=== PATIENT | male | born 1995 | race Caucasian/White ===

== ENCOUNTER 2016-12-09 13:11 | Emergency (ER) | payer OTHER ==
[~2016-12-09] VITALS: Ht 185.4 cm; Wt 75.0 kg
[2016-12-09 13:23] VITALS: TEMP 36.6; Ht 185.4 cm; Wt 75.0 kg
[2016-12-09 14:02] LABS: BUN/CREATININE RATIO 13.2 (10-20); CALCIUM 9.2 mg/dl (8.5-10.1); CREATININE 1.1 mg/dl (0.60-1.40); POTASSIUM 3.8 mmol/L (3.5-5.1)
[2016-12-09 15:17] VITALS: O2SAT 99
[2016-12-09 16:10] VITALS: BP 119/48; PULSE 90
--- NOTE | 2016-12-09 20:56 | EMERGENCY ROOM VISIT NOTE ---
ED Visit Note First contact with patient: 13:18 Chief Complaint: Alcohol overdose. History of Present Illness: Mr. Cisneros is a 21-year-old white male who presents into the ED via ambulance for alcohol intoxication. He was found leaning over a fence by police. When questions he reports he was drinking vodka. EMS was summons and he was brought into the ED for evaluation. EMS reports patient was stable and had no acute changes en route. Initially he was responsive to verbal stimuli, he was breathing and did not appear to be in any acute distress, with stable vital signs. He once again reports he was drinking vodka. He does not remember the specific amounts. He denies any illicit drug use. He reports he did not have any falls. Currently he is reporting that he is no longer nauseated and is not experiencing any pain. He denies headache, dizziness, lightheadedness, visual changes, hearing changes, difficulty speaking, difficulty swallowing, neck pain , back pain, chest pain/discomfort, difficulty breathing, shortness of breath, abdominal pain, and extremity pain. After approximately hours the patient reports Review of Systems: As noted above in History of Present Illness. All body systems were reviewed with this patient and found to be negative unless noted above otherwise. Past Medical History: Patient denies. Social History: Patient is University student; he feels safe in his home environment; he denies tobacco use and admits to alcohol use. Current Medications: Patient denies. Allergies to Medications: Patient denies. Physical Examination: Vital Signs: Date Time Temp Pulse Resp B/P (MAP) Pulse Ox O2 Delivery O2 Flow Rate FiO2 12/09/16 16:10 90 18 119/48 12/09/16 15:17 70 16 117/50 99 Room Air 12/09/16 13:39 52 12/09/16 13:23 36.6 72 20 110/62 100 Room Air General: 21 year old white male in no acute distress, afebrile and hemodynamically stable. Skin: Warm dry and pink without signs of trauma. Head: Atraumatic and normocephalic. Eyes: Pupils are round equal and reactive to light. Conjunctiva is not injected. Sclera without icterus. Pharynx: Clear and moist without erythema or exudate. Ears: Externally nontender. Canals patent pink. Tympanic membranes pearly dolan with a foreign facing cone of light. Neck: Supple without lymphadenopathy or meningeal signs. Thorax: Lungs sounds are clear to auscultation and equal bilaterally with symmetrical chest wall movements. Heart: Regular rate and rhythm. No murmurs, rubs or gallops Abdomen: Soft, nondistended and nontender. Bowel sounds are present in all quadrants. No organomegaly or, rigidity, rebound tenderness, guarding or masses. Back: No tenderness over the cervical, thoracic, lumbar or sacral bony spine. Full range of motion of the cervical spine. No CVA tenderness. Extremities: No gross long bone deformities. No tenderness over the joints. Skin warm and well perfuse. Neurologic: Responsive to painful and verbal stimuli. Alert and oriented. Cranial nerves II through XII grossly intact. No focal motor or sensory deficits noted. All nursing documentation reviewed. Procedures: EKG monitoring: He was monitored during his entire ED stay. He was sinus rhythm without ectopy and his pulse oximetry remained in a high 90s. Diagnostic: Laboratory tests: Test 12/09/16 13:32 Range/Units Sodium Level 141 136-145 mmol/L Potassium Level 3.8 3.5-5.1 mmol/L Chloride Level 105 98-107 mmol/L Carbon Dioxide Level 29 21-32 mmol/L Anion Gap 7.0 3-11 mmol/L Blood Urea Nitrogen 15 7-18 mg/dl Creatinine 1.10 0.60-1.40 mg/dl Est Creatinine Clear Calc Drug Dose 110.8 ml/min Estimated GFR () 109.1 Estimated GFR (Non- 94.1 BUN/Creatinine Ratio 13.2 10-20 Random Glucose 95 70-99 mg/dl Calcium Level 9.2 8.5-10.1 mg/dl Ethyl Alcohol mg/dL 213.0 0-3 mg/dl ED Course: Patient is assessed with history and physical examination and laboratory tests. Patient is placed on the patient monitor/pulse oximetry and is observed for aspiration. Patient is reassessed. Patient is educated about his condition and instructed on his treatment plan; he verbalizes understanding and agreement with this plan. Clinical Impression: Acute alcohol intoxication. Medical Decision Makin21 year old male brought in for presumably alcohol intoxication. Initial history and physical examination was performed. He was monitored and an alcohol level was obtained; 213. We did watch him for several hours and he was able to maintain his own airway. There is no evidence of other toxic ingestions, trauma, anemia, hypoglycemia, head injury, intracranial pathology, meningitis, encephalitis, acute intrathoracic or abdominal pathologies or other metabolic conditions. Prior to discharge he was able to ambulate without assistance. Disposition: He was discharged to home in stable condition via taxi. Plan: STOP DRINKING ETOH EXCESSIVELY. Patient was encouraged to use ibuprofen or Tylenol as needed for pain. Patient was encouraged to increase clear fluids for the next 4-5 days to 4-5 quarts to maintain hydration. Patient was encouraged to followup with [facility] or return emergency department as needed.
== END 2016-12-09 16:13 | disposition home or self-care (01) ==
LOC: C.EDB 13:14
DX: F10.129 Alcohol abuse with intoxication, unspecified (principal); Y90.7 Blood alcohol level of 200-239 mg/100 ml